=== PATIENT | male | born 1950 | race Caucasian/White ===

== ENCOUNTER → 2021-08-31 | Outpatient (CLI) | payer OTHER, MEDICARE | LOC: EXRD 13:57 | DX: N28.9 Disorder of kidney and ureter, unspecified (principal); R93.422 Abnormal radiologic findings on diagnostic imaging of left kidney | CPT/HCPCS: 76775 ==

== ENCOUNTER → 2021-09-05 | Outpatient (CLI) | payer OTHER, MEDICARE | LOC: CT 10:15 | DX: R93.429 Abnormal radiologic findings on diagnostic imaging of unspecified kidney (principal); R59.0 Localized enlarged lymph nodes | CPT/HCPCS: Q9967 ==